=== PATIENT | female | born 1990 | race Asian ===

== ENCOUNTER 2018-04-28 00:21 | Inpatient (IN) | payer SELFPAY ==
[~2018-04-28] VITALS: Ht 160 cm; Wt 66.2 kg
[2018-04-28] MEDS ORDERED: PROMETHAZINE 25 MG/ML VIAL IVP PRN (00:50)
[2018-04-28] MEDS ORDERED: OXYTOCIN 20 UNITS in LACTATED RINGERS 1,000 ML IV SCH ×2 (00:50→08:50)
[2018-04-28] MEDS ORDERED: OXYTOCIN 10 UNITS/ML VIAL IM ONE (00:50)
[2018-04-28] MEDS ORDERED: AMPICILLIN 2,000 MG in NACL 0.9% 100 ML IV SCH (00:50)
[2018-04-28] MEDS ORDERED: LACTATED RINGERS 1,000 ML IV SCH (00:50)
[2018-04-28] MEDS ORDERED: CARBOPROST 250 MCG/ML AMP IM PRN (00:50)
[2018-04-28] MEDS ORDERED: NALBUPHINE 10 MG/ML AMP IVP PRN (00:50)
[2018-04-28] MEDS ORDERED: MISOPROSTOL 25 MCG TAB VG SCH ×2 (00:50→04:00)
[2018-04-28] MEDS ORDERED: METHYLERGONOVINE 0.2 MG/ML AMP IM PRN ×2 (00:50→22:40)
[2018-04-28 01:26] LABS: APPEARANCE,URINE HAZY (CLEAR); BILIRUBIN,URINE NEGATIVE (NEGATIVE); BLOOD, URINE NEGATIVE (NEGATIVE); COLOR,URINE YELLOW (YELLOW); LEUKOCYTE ESTERASE ,URINE NEGATIVE (NEGATIVE); NITRITE, URINE NEGATIVE (NEGATIVE); PH,URINE 8.5 (5.0-9.0); UGLUCOSE NEGATIVE (NEGATIVE)
[2018-04-28 01:28] LABS: BASOPHILS % (AUTO) 0.4 % (0.0-2.0); EOSINOPHILS # (AUTO) 0.1 K/uL (0-0.4); EOSINOPHILS % (AUTO) 0.8 % (0.0-4.0); HEMATOCRIT 35.1 % (36-48); HEMOGLOBIN 11.7 g/dL (12.0-16.0); LYMPHOCYTES # (AUTO) 1.7 K/uL (2.5-16.5); LYMPHOCYTES % (AUTO) 18.7 % (20.5-51.1); MEAN CORPUSCULAR HEMOGLOBIN 29 pg (27-31); MEAN CORPUSCULAR HGB CONC 33 g/dL (33-37); MEAN CORPUSCULAR VOLUME 87.6 fL (80-94); MONOCYTES # (AUTO) 0.7 K/uL (0.8-1.0); MONOCYTES % (AUTO) 7.9 % (1.7-9.3); NEUTROPHILS # (AUTO) 6.6 K/uL (1.8-7.7); NEUTROPHILS % (AUTO) 72.2 % (42.2-75.2); PLATELET COUNT (AUTO) 237 K/uL (140-450); RED BLOOD CELL COUNT(AUTO) 4.01 MIL/uL (4.20-5.40); RED CELL DISTRIBUTION WIDTH 16.7 % (11.6-13.7); WHITE BLOOD COUNT (AUTO) 9.2 K/uL (4.8-10.8)
[2018-04-28 01:41] LABS: CARBON DIOXIDE 23.9 mmol/L (21-32); CREATININE 0.5 mg/dL (0.6-1.3); POTASSIUM 3.9 mmol/L (3.5-5.1)
[2018-04-28 01:43] LABS: RBC,URINE 0-5 (RARE) /HPF (0-5)
[2018-04-28 01:47] LABS: ALBUMIN 2.7 g/dL (3.4-5.0); TOTAL BILIRUBIN 0.4 mg/dL (0.0-1.0)
[2018-04-28] MEDS ORDERED: AMPICILLIN 2,000 MG VIAL ONE (03:11)
[2018-04-28] MEDS ORDERED: AMPICILLIN 1,000 MG VIAL IVP SCH (04:00)
[2018-04-28] MEDS ORDERED: AMPICILLIN 1,000 MG in NACL 0.9% 50 ML IV SCH (04:00)
[2018-04-28 06:20] VITALS: BP 114/58
[2018-04-28] MEDS ORDERED: AMPICILLIN 1,000 MG VIAL ONE ×3 (07:45→14:41)
--- NOTE | 2018-04-28 08:19 | NUR ---
PATIENT HAS BEEN SCREENED AND CATEGORIZED LOW NUTRITION RISK. PATIENT WILL BE SEEN WITHIN 7 DAYS OF ADMISSION. 05/05/18 JOHN TREJO MBA, RD
[2018-04-28] MEDS ORDERED: ROPIVACAINE 0.2%/NS PREMIX 250 ML EPI ONE ×2 (08:47→16:41)
[2018-04-28] MEDS ORDERED: OXYTOCIN 10 UNITS/ML VIAL ONE (21:49)
[2018-04-28] MEDS ORDERED: BENZOCAINE/MENTHOL 20%-0.5% 60 GM CAN TP PRN (22:40)
[2018-04-28] MEDS ORDERED: MEASLES, MUMPS, AND RUBELLA 1 VIAL SQVAC PRN (22:40)
[2018-04-28] MEDS ORDERED: OXYTOCIN 10 UNITS/ML VIAL IM PRN (22:40)
[2018-04-28] MEDS ORDERED: TEMAZEPAM 15 MG CAP PO PRN (22:40)
[2018-04-28] MEDS ORDERED: oxyCODONE/APAP 5/325 MG 1 TAB TAB PO PRN (22:40)
[2018-04-28] MEDS ORDERED: oxyCODONE/APAP 5/325 MG 1 TAB TAB ONE (23:05)
[2018-04-29] MEDS: HYDROcodone/APAP 5/325 MG 1 TAB TAB PO PRN (03:20)
[2018-04-29 05:26] LABS: HEMATOCRIT 31.9 % (36-48); HEMOGLOBIN 10.6 g/dL (12.0-16.0)
[2018-04-29] MEDS ORDERED: BETHANECHOL 25 MG TAB PO STA (05:57)
[2018-04-29] MEDS: IBUPROFEN 800 MG TAB PO PRN ×4 (08:44→21:32)
[2018-04-29] MEDS ORDERED: BETHANECHOL 25 MG TAB PO PRN (12:00)
[2018-04-29 15:39] LABS: HEPATITIS B SURFACE ANTIBODY Reactive (.)
[2018-04-29] MEDS ORDERED: DOCUSATE SOD/SENNA 50/8.6 MG 1 TAB PO SCH (21:00)
[2018-04-30] MEDS: IBUPROFEN 800 MG TAB PO PRN (06:17)
[2018-04-30] MEDS: HYDROcodone/APAP 5/325 MG 1 TAB TAB PO PRN (15:59)
== END 2018-04-30 21:00 | disposition home or self-care (01) | DRG 775 ==
LOC: MFCC 00:21
PROVIDERS: ADMIT Obstetrics & Gynecology; ATTEND Obstetrics & Gynecology
PROC: 10E0XZZ Delivery of Products of Conception, External Approach (ICD-10-PCS; principal; 2018-04-28)
PROC: 10E0XZZ Delivery of Products of Conception, External Approach (ICD-10-PCS; 2018-04-28)
PROC: 3E033VJ Introduction of Other Hormone into Peripheral Vein, Percutaneous Approach (ICD-10-PCS; 2018-04-28)
PROC: 10907ZC Drainage of Amniotic Fluid, Therapeutic from Products of Conception, Via Natural or Artificial Opening (ICD-10-PCS; 2018-04-28)
PROC: 0W8NXZZ Division of Female Perineum, External Approach (ICD-10-PCS; 2018-04-28)
PROC: 3E0R3BZ Introduction of Anesthetic Agent into Spinal Canal, Percutaneous Approach (ICD-10-PCS; 2018-04-28)
PROC: 00HU33Z Insertion of Infusion Device into Spinal Canal, Percutaneous Approach (ICD-10-PCS; 2018-04-28)
PROC: 3E0234Z Introduction of Serum, Toxoid and Vaccine into Muscle, Percutaneous Approach (ICD-10-PCS; 2018-04-28)
DX: O69.1XX0 Labor and delivery complicated by cord around neck, with compression, not applicable or unspecified (principal); Z3A.00 Weeks of gestation of pregnancy not specified; Z37.0 Single live birth; Z23 Encounter for immunization
CPT/HCPCS: 36415; 51702; 80053; 81001; 85018; 85025; 86592; 86706; 86762; 86886; 86900; 86901; 87086; 87653-90; 90715; C1758; J0290; J2590; J2795; J7120